=== PATIENT | male | born 1970 | race African-American/Black ===

== ENCOUNTER 2024-12-16 21:53 | Inpatient (IN) | payer OTHER ==
[~2024-12-16] VITALS: Ht 172.7 cm; Wt 74.4 kg
[~2024-12-16 21:53] MED LIST: CHLO25CA10 PO; HYDR-3735 PO; HYDR50TA40 MT; METO-396 PO; METO-539 PO
[2024-12-16 21:56] VITALS: O2SAT 99
[2024-12-16 22:43] LABS: BASOPHILS % 0.3 % (0.0-2.0); EOSINOPHILS % 1.5 % (0.0-5.0); HEMATOCRIT. 37.2 % (42.0-52.0); HEMOGLOBIN. 12.0 g/dL (14.0-18.0); LYMPHOCYTES % 18.8 % (20.0-50.0); MEAN PLATELET VOLUME 8.0 fl (7.4-10.4); MONOCYTES % 9.2 % (2.0-8.0); NEUTROPHILS % 70.2 % (40.0-76.0); PLATELET 200 x1000/uL (130-400); RED BLOOD CELL COUNT 4.20 mill/uL (4.7-6.1); RED CELL DISTRIBUTION WIDTH 12.9 % (11.6-14.6)
[2024-12-16 22:57] LABS: CREATININE 1.1 mg/dL (0.6-1.3)
[2024-12-16 22:58] LABS: ETHANOL BLOOD < 10 mg/dL (<10); UREA NITROGEN BLOOD 13 mg/dL (9-23)
[2024-12-16 22:59] LABS: ASPARTATE AMINOTRANSFERASE 177 IU/L (<34); BILIRUBIN DIRECT < 0.1 mg/dL (<=3.0); PHOSPHORUS 3.1 mg/dL (2.5-4.9)
[2024-12-16 23:00] LABS: BILIRUBIN TOTAL 0.3 mg/dL (0.1-1.0); INR 0.9; PROTEIN TOTAL 6.7 g/dL (6.0-8.3)
[2024-12-16 23:05] LABS: TROPONIN I HIGH SENSITIVITY 60 ng/L (3.0-53)
[2024-12-17] MEDS: SODIUM CHLORIDE 0.9% 1,000 ML IV ONE
[2024-12-17] MEDS: ASPIRIN 325MG EC TABLET PO ONE
[2024-12-17] MEDS: IOHEXOL-350 100 ML BOTTLE ONE (00:12)
[2024-12-17 04:00] VITALS: BP 176/108; PULSE 100; RESP 18; TEMP 36.4; O2SAT 97
[2024-12-17] MEDS ORDERED: CARVEDILOL 3.125 MG TABLET PO PRN (04:30)
[2024-12-17 04:48] VITALS: BP 173/98; PULSE 95; RESP 18; TEMP 36.6404
[2024-12-17] MEDS: CLONIDINE 0.1MG TABLET PO PRN (05:54)
[2024-12-17 08:00] VITALS: BP 166/91; PULSE 88; RESP 18; TEMP 36.8; O2SAT 98
[2024-12-17] MEDS ORDERED: HYDR50TA39 PO (08:25)
[2024-12-17] MEDS ORDERED: ONDANSETRON HCL 4MG/2ML INJ IV PRN (08:30)
[2024-12-17] MEDS ORDERED: ACETAMINOPHEN 325MG TABLET PO PRN (08:30)
[2024-12-17] MEDS: ASPIRIN 81MG TABLET PO SCH (10:29)
[2024-12-17] MEDS: PANTOPRAZOLE SODIUM 40 MG/VIAL IV SCH (10:29)
[2024-12-17] MEDS: HYDRALAZINE HCL 50MG TABLET PO SCH (10:30)
[2024-12-17] MEDS: METOPROLOL TARTRATE 50MG TABLET PO SCH (10:31)
[2024-12-17 12:00] VITALS: BP 153/93; PULSE 73; RESP 18; TEMP 36.4; O2SAT 100
[2024-12-17 12:53] LABS: BASOPHILS % 0.3 % (0.0-2.0); EOSINOPHILS % 3.0 % (0.0-5.0); HEMATOCRIT. 38.2 % (42.0-52.0); HEMOGLOBIN. 12.3 g/dL (14.0-18.0); LYMPHOCYTES % 20.7 % (20.0-50.0); MEAN PLATELET VOLUME 8.5 fl (7.4-10.4); MONOCYTES % 9.9 % (2.0-8.0); NEUTROPHILS % 66.1 % (40.0-76.0); PLATELET 183 x1000/uL (130-400); RED BLOOD CELL COUNT 4.29 mill/uL (4.7-6.1); RED CELL DISTRIBUTION WIDTH 13.3 % (11.6-14.6)
[2024-12-17 13:09] LABS: CREATININE 0.9 mg/dL (0.6-1.3); LDL CHOLESTEROL 39.0 mg/dL (5-100); TRIGLYCERIDE 41.0 mg/dL (0-150); TRIGLYCERIDE 43 mg/dL (0-150); UREA NITROGEN BLOOD 8 mg/dL (9-23)
[2024-12-17 13:10] LABS: LDL CHOLESTEROL 39 mg/dL (5-100)
[2024-12-17 13:16] LABS: T4 FREE 1.09 ng/dL (0.89-1.76)
[2024-12-17 16:00] VITALS: BP_SYST 172; BP_SYST 179; BP_DIAS 100; BP_DIAS 98; PULSE 68; PULSE 76; RESP 18; TEMP 36.5; O2SAT 100
[2024-12-17 20:00] VITALS: BP 149/98; RESP 17; TEMP 36.4; O2SAT 99
[2024-12-17] MEDS: ATORVASTATIN CALCIUM 40MG TABLET PO SCH (21:22)
[2024-12-17] MEDS: METOPROLOL TARTRATE 25MG TABLET PO SCH (21:25)
[2024-12-18] VITALS: PULSE 57
[2024-12-18 01:27] LABS: TROPONIN I HIGH SENSITIVITY 32 ng/L (3.0-53)
[2024-12-18 08:00] VITALS: BP 165/94; PULSE 71; RESP 18; TEMP 36.4; O2SAT 100
[2024-12-18 12:00] VITALS: BP 135/81; PULSE 68; RESP 18; TEMP 36.4; O2SAT 99
[2024-12-18] MEDS ORDERED: DILT60TA35 PO (12:21)
[2024-12-18 12:28] LABS: BASOPHILS % 0.3 % (0.0-2.0); EOSINOPHILS % 1.4 % (0.0-5.0); HEMATOCRIT. 41.1 % (42.0-52.0); HEMOGLOBIN. 13.6 g/dL (14.0-18.0); LYMPHOCYTES % 16.1 % (20.0-50.0); MEAN PLATELET VOLUME 8.7 fl (7.4-10.4); MONOCYTES % 8.2 % (2.0-8.0); NEUTROPHILS % 74.0 % (40.0-76.0); PLATELET 233 x1000/uL (130-400); RED BLOOD CELL COUNT 4.69 mill/uL (4.7-6.1); RED CELL DISTRIBUTION WIDTH 13.5 % (11.6-14.6)
[2024-12-18 12:41] LABS: CREATININE 1.1 mg/dL (0.6-1.3); UREA NITROGEN BLOOD 10 mg/dL (9-23)
[2024-12-18 14:42] VITALS: BP 150/101; PULSE 62; RESP 16; TEMP 97.6
[2024-12-18 14:50] VITALS: PULSE 62
[2024-12-18] MEDS: DILTIAZEM HCL 90MG TABLET PO SCH (14:50)
== END 2024-12-18 15:40 | disposition home or self-care (01) | DRG 812 ==
LOC: ER 21:53 → EDBEDREQ 12-17 00:59 → EDBEDREQDT 12-17 00:59 → EDBEDREQTM 12-17 00:59 → ENRESERV 12-17 01:30 → 5WST 12-17 02:36
PROVIDERS: ADMIT Internal Medicine; ATTEND Internal Medicine
DX: T50.911A Poisoning by multiple unspecified drugs, medicaments and biological substances, accidental (unintentional), initial encounter (principal); I50.33 Acute on chronic diastolic (congestive) heart failure; I21.A1 Myocardial infarction type 2; I16.0 Hypertensive urgency; I11.0 Hypertensive heart disease with heart failure; I47.10 Supraventricular tachycardia, unspecified; F15.10 Other stimulant abuse, uncomplicated; F19.10 Other psychoactive substance abuse, uncomplicated; Z72.0 Tobacco use; F10.90 Alcohol use, unspecified, uncomplicated
CPT/HCPCS: 36415; 71045; 71275; 80048; 80061; 80076; 80320; 83735; 83880; 84100; 84439; 84443; 84484; 85025; 85379; 93005; 99285; J2470; Q9967; G0480